=== PATIENT | female | born 1990 | race Caucasian/White ===

== ENCOUNTER 2023-09-11 15:12 | Emergency (ER) | payer OTHER ==
[2023-09-11 15:38] VITALS: BP 132/89; PULSE 90; RESP 18; TEMP 99.4; BMI 21.9
[2023-09-11] MEDS ORDERED: ACETAMINOPHEN 325 MG TABLET (FP) ONE (17:29)
[2023-09-11] MEDS: ACETAMINOPHEN 325 MG TABLET (FP) PO ONE (17:55)
[2023-09-11] MEDS ORDERED: ALBUTEROL SO4 2.5/IPRATROPIUM 0.5 INH SOL 3 ML VIAL.NEB. NEB ONE (18:34)
[2023-09-11] MEDS: ALBUTEROL SO4 2.5/IPRATROPIUM 0.5 INH SOL 3 ML VIAL.NEB. NEB ONE (18:41)
== END 2023-09-11 20:30 | disposition home or self-care (01) ==
LOC: JER 15:12
PROC: 3E0F7GC Introduction of Other Therapeutic Substance into Respiratory Tract, Via Natural or Artificial Opening (ICD-10-PCS; principal; 2023-09-11)
DX: S80.12XA Contusion of left lower leg, initial encounter (principal); S20.212A Contusion of left front wall of thorax, initial encounter; R05.3 Chronic cough; R51.9 Headache, unspecified; M54.9 Dorsalgia, unspecified; M54.2 Cervicalgia; V43.52XA Car driver injured in collision with other type car in traffic accident, initial encounter; Y92.481 Parking lot as the place of occurrence of the external cause
CPT/HCPCS: 71046-TC-FY; 84703; 99284-25